=== PATIENT | male | born 1960 | race Asian ===

== ENCOUNTER 2017-03-16 11:54 | Day surgery (SDC) | payer BC ==
[~2017-03-16] VITALS: Ht 172.7 cm; Wt 68.2 kg
[2017-03-16] VITALS (11 sets, daily range): BP systolic 126–156; BP diastolic 73–99; PULSE 55–74; TEMP 97.8
[2017-03-16] MEDS ORDERED: MULTI VITAMINS1 TAB PO (12:43)
[2017-03-16 12:44] LABS: INR 0.9 (0.8-3.0); PROTHROMBIN TIME 10.3 SECONDS (9.7-12.8)
[2017-03-16] MEDS ORDERED: ASPIRIN E.C. 8181 MG PO (12:44)
[2017-03-16] MEDS ORDERED: TOPROL XL 25MG25 MG PO (12:45)
[2017-03-16 12:46] LABS: HEMATOCRIT 43.4 % (42.0-52.0); HEMOGLOBIN 14.8 g/dl (13.5-18.0); MEAN CELL VOLUME 94 fl (80.0-100.0); MEAN CORPUSCULAR HEMOGLOBIN 32 pg (27.0-31.0); MEAN CORPUSCULAR HGB CONC 34 g/dl (33.0-37.0); MEAN PLATELET VOLUME 9.9 fl (7.4-10.4); PLATELET COUNT 223 K/mm3 (130-400); REDCELL DISTRIBUTION WIDTH-CV 12.1 % (11.5-14.5); WHITE BLOOD COUNT 7.9 K/mm3 (4.8-10.8)
[2017-03-16 12:55] LABS: CALCIUM 9.5 mg/dL (8.4-10.2); CREATININE, serum 0.7 mg/dL (0.66-1.25)
[2017-03-16] MEDS ORDERED: FISH OIL1000 MG PO (13:00)
[2017-03-16] MEDS ORDERED: THE MEDICINE S200 M2 PO (13:03)
[2017-03-16] MEDS ORDERED: LIPITOR 40MG TA40 MG PO (16:28)
[2017-03-16] MEDS ORDERED: VASOTEC 5MG5 MG/TAB PO (16:28)
== END 2017-03-16 18:15 | disposition home or self-care (01) ==
LOC: COL.CAR 11:54
PROVIDERS: Internal Medicine Cardiovascular Disease
DX: I42.9 Cardiomyopathy, unspecified (principal); I25.10 Atherosclerotic heart disease of native coronary artery without angina pectoris; E78.5 Hyperlipidemia, unspecified; F17.210 Nicotine dependence, cigarettes, uncomplicated; Z83.3 Family history of diabetes mellitus; Z82.49 Family history of ischemic heart disease and other diseases of the circulatory system
CPT/HCPCS: C1760; C1894; J2250; J3010; Q9967

== ENCOUNTER → 2017-03-31 | Outpatient (CLI) | payer BC ==
[~2017-03-31] MED LIST: ASPIRIN E.C. 8181 MG PO; FISH OIL1000 MG PO; LIPITOR 40MG TA40 MG PO; MULTI VITAMINS1 TAB PO; THE MEDICINE S200 M2 PO; TOPROL XL 25MG25 MG PO; VASOTEC 5MG5 MG/TAB PO
== END ==
LOC: COL.VAS 08:34
DX: I82.411 Acute embolism and thrombosis of right femoral vein (principal); T85.848A Pain due to other internal prosthetic devices, implants and grafts, initial encounter